=== PATIENT | male | born 1970 | race Caucasian/White ===

== ENCOUNTER 2023-11-29 08:15 | Day surgery (SDC) | payer BC ==
[~2023-11-29 08:15] MED LIST: Sodium Chloride 0.9% 10 ML Syringe FLUSH PRN
[2023-11-29] MEDS ORDERED: Lidocaine 1% 4 ML ONE (08:40)
[2023-11-29] MEDS ORDERED: Propofol 200 MG/20 ML SDV ONE ×2 (08:40→09:47)
[2023-11-29] MEDS ORDERED: Lidocaine 1% PF 2 ML SDV ONE ×2 (08:40)
[2023-11-29] MEDS: Lactated Ringers 1,000 ML IV SCH (08:55)
[2023-11-29] MEDS ORDERED: Sodium Chloride 0.9% 10 ML Syringe FLUSH SCH (09:00)
== END 2023-11-29 11:30 | disposition home or self-care (01) ==
LOC: JD.SDS 08:15
PROVIDERS: ATTEND Surgery
DX: Z12.11 Encounter for screening for malignant neoplasm of colon (principal); D12.5 Benign neoplasm of sigmoid colon; K64.8 Other hemorrhoids; K57.30 Diverticulosis of large intestine without perforation or abscess without bleeding; I10 Essential (primary) hypertension; K21.9 Gastro-esophageal reflux disease without esophagitis; E78.2 Mixed hyperlipidemia; Z79.899 Other long term (current) drug therapy
CPT/HCPCS: 45380; J2704; J7120; 00811; J3490